=== PATIENT | female | born 1990 | race Caucasian/White ===

== ENCOUNTER 2017-12-10 06:53 | Day surgery (SDC) | payer BC ==
[2017-12-10 08:24] VITALS: BMI 30.2
--- NOTE | 2017-12-10 08:58 | PDOC.LDHP ---
Labor and Delivery H&P HPI: Patient seen in Triage (first arrival at approx 0715) for contractions. She is a 27yo G1 at 39 weeks and 2 days with EDC 12/15. Patient of Dr Sanchez. No LOF, No VB, no HARRIS, good FM. Denies other issues. here for labor check. Current gestational age (weeks): 39 (2 days) Due date: 12/15/17 Dating criteria: last menstrual period Grav: 1 Para: 0 Current complications: none Abnormal US findings: No Current medications: pre-jesenia vitamins Allergies/Adverse Reactions: Allergies Allergy/AdvReac Type Severity Reaction Status Date / Time Cephalosporins Allergy Verified 12/10/17 08:08 Social history: other (cephalosporins) - Physical Exam Vital signs reviewed and normal: yes (highest BP was 130/90 x 1) General: NAD Heart: RRR Lungs: CTAB Abdomen: gravid FHT: category 1 Calvary contractions every: irregular pattern noted - Vaginal Exam cm dilated: 0 (per RN exam (I will check prior to final disposition; cervix stated as very posterior on empty bladder)) - Plan Plan: observation in L&D, other (Patient has been observed for 1-2 hours. DX ids threatned labor at term. I will recheck cervix and ifno evidence of ROM or advanced dilation, ok for outpatient follow up. Pain control prn. Strip seen by me.)
--- NOTE | 2017-12-10 09:17 | PDOC.EVN ---
Event Note - Event Note Event Note: Exam just performed by me at 904: cervix posterior, 1cm/80/0/soft. No evidence VB or ROM strip reviewed with the patient and her partner: cat 1 discussed. She is having contractions on toco but she states she is ok and declines pain meds at this time. I have discussed with her latent phase of labor. Q&A done. I advised her to follow up with Dr Sanchez tomorrow before the weekend for recheck. OK for outpatient follow up.
[2017-12-11] MEDS ORDERED: FLU VACC QS2017-18 36 mo. & older 0.5 ML SYRINGE IM ONE (09:00)
== END 2017-12-10 09:22 | disposition home or self-care (01) ==
LOC: L&D/OP 06:53
PROVIDERS: ATTEND Family Medicine
DX: O47.1 False labor at or after 37 completed weeks of gestation (principal); Z3A.39 39 weeks gestation of pregnancy; Z88.1 Allergy status to other antibiotic agents

== ENCOUNTER 2017-12-11 08:33 | Inpatient (IN) | payer BC ==
[2017-12-11 09:08] VITALS: BMI 30.2
[2017-12-11] MEDS ORDERED: Ondansetron HCl/PF 4 MG/2 ML Vial IVP PRN (12:22)
[2017-12-11] MEDS ORDERED: LR / Pitocin 40 units/1000 ml 1,000 ML IV PRN (12:22)
[2017-12-11] MEDS ORDERED: Lidocaine 1% (PF) 30 ML VIAL SC PRN (12:22)
[2017-12-11] MEDS ORDERED: Acetaminophen/Codeine 30-300mg Tablet PO PRN ×2 (12:22)
[2017-12-11] MEDS ORDERED: Ibuprofen 800 MG TAB PO PRN (12:22)
[2017-12-11] MEDS ORDERED: Lactated Ringer's 1,000 ML IV SCH (12:30)
[2017-12-11] MEDS: Lactated Ringer's 1,000 ML IV SCH ×3 (13:15→18:01)
[2017-12-11 13:33] LABS: Hemoglobin 12.7 g/dL (12.0-16.0); Mean Corpuscular HGB CONC 34.2 g/dL (32.0-36.0); Mean Corpuscular Hemoglobin 30.9 pg (27.0-31.0); Mean Corpuscular Volume 90.6 fl (81.0-99.0); Mean Platelet Volume 9.3 fL (7.4-10.4); Platelet Count 236 thou/uL (130-400); RBC Distribution Width 11.7 % (11.5-14.5); Red Blood Cell (RBC) Count 4.09 mill/uL (4.20-5.40); White Blood Cell (WBC) Count 12.5 thou/uL (4.8-10.8)
[2017-12-11 14:11] LABS: Syphilis Antibody Nonreactive (Nonreactive); Syphilis Antibody Index 0.03 S/CO (<1.00 Non-Reactive)
[2017-12-11 14:37] LABS: HBSAg Index 0.17 S/CO (0-0.99); Hep B Surf Ag Non-Reactive S/CO (NonReactive)
[2017-12-11] MEDS ORDERED: LR 500 ML/Oxytocin 10 units 500 ML ONE (19:47)
[2017-12-11] MEDS ORDERED: Bupivacaine 0.5% 20 ML, Fentanyl 400 MCG in Sodium Chloride 0.9% 72 ML EPIDURAL SCH (20:45)
[2017-12-11 21:53] LABS: Analyzer IN Cardio OR
[2017-12-11 21:54] LABS: Actual Bicarbonate (HCO3v) 20 mEq/L (22-26); Base Excess -5.8 mEq/L (0 (+/- 2.5))
[2017-12-12] MEDS ORDERED: Bisacodyl 10 MG SUPP PR PRN (00:34)
[2017-12-12] MEDS ORDERED: LR / Pitocin 40 units/1000 ml 1,000 ML IV SCH (00:34)
[2017-12-12] MEDS ORDERED: Milk Of Magnesia 30 ML UDCUP PO PRN (00:34)
[2017-12-12] MEDS ORDERED: HYDROcodone/Acetaminophen 5/325 mg Tablet PO PRN (00:34)
[2017-12-12] MEDS ORDERED: Preparation H Ointment 28 GM TUBE PR PRN (00:34)
[2017-12-12] MEDS ORDERED: Benzocaine/Menthol 20-0.5% 60 ML CAN TOP PRN (00:34)
[2017-12-12] MEDS: LR 500 ML/Oxytocin 10 units 500 ML IV SCH (02:13)
[2017-12-12] MEDS: Ibuprofen 800 MG TAB PO SCH ×2 (04:21→13:45)
[2017-12-12] MEDS ORDERED: Lanolin Ointment 7 GM TUBE TOP PRN (04:21)
[2017-12-12] MEDS: Docusate Calcium (SURFAK) 240 MG CAP PO SCH ×2 (09:34→21:32)
[2017-12-12] MEDS: Ferrous Sulfate 325 MG TAB PO SCH ×2 (09:35→15:17)
[2017-12-13] MEDS: Ibuprofen 800 MG TAB PO SCH ×2 (00:58→09:11)
[2017-12-13] MEDS: LR 500 ML/Oxytocin 10 units 500 ML IV SCH (00:59)
[2017-12-13 08:45] VITALS: TEMP 98.3
[2017-12-13] MEDS: Docusate Calcium (SURFAK) 240 MG CAP PO SCH (09:10)
[2017-12-13] MEDS: Ferrous Sulfate 325 MG TAB PO SCH (09:11)
[2017-12-13 09:16] VITALS: BP 130/69
== END 2017-12-13 12:46 | disposition home or self-care (01) | DRG 775 ==
LOC: L&D/OP 08:33 → L&D 12:39 → 3SW 12-12 00:20
PROVIDERS: ADMIT Family Medicine; ATTEND Family Medicine
PROC: 10D07Z6 Extraction of Products of Conception, Vacuum, Via Natural or Artificial Opening (ICD-10-PCS; principal; 2017-12-11)
PROC: 0KQM0ZZ Repair Perineum Muscle, Open Approach (ICD-10-PCS; 2017-12-11)
DX: O69.1XX0 Labor and delivery complicated by cord around neck, with compression, not applicable or unspecified (principal); E28.2 Polycystic ovarian syndrome; O70.1 Second degree perineal laceration during delivery; Z37.0 Single live birth; O76 Abnormality in fetal heart rate and rhythm complicating labor and delivery; O99.284 Endocrine, nutritional and metabolic diseases complicating childbirth; Z3A.39 39 weeks gestation of pregnancy
CPT/HCPCS: 82805; 85027; 86780; 87340; 99285; J0595; J2001; J2405; J3010; J3490; J7050; J7120

== ENCOUNTER 2019-09-23 13:00 | Day surgery (SDC) | payer BC ==
[2019-09-23 13:44] VITALS: BP 122/87; TEMP 98.6
[2019-09-23] MEDS ORDERED: hydrALAZINE 20 MG/ML VIAL SLOW IVP PRN (15:57)
--- NOTE | 2019-09-23 16:40 | HP ---
PRIMARY OB: Sean Sanchez MD CHIEF COMPLAINT: Abdominal pain. HISTORY OF PRESENT ILLNESS: The patient is a 29-year-old, G2, P1 female with an intrauterine at 37 weeks and 3 days, presenting with a 2-day history of increasingly more frequent and severe abdominal pains/uterine contractions. The patient reports this lasts several hours. They have been 3 to 4 minutes apart and increasing in intensity. Denies any vaginal bleeding or leakage of fluid. Denies any fever, fall, headache, chest pain, or shortness of breath. The patient had some nausea with the contractions. Denies any significant vomiting. Denies diarrhea or constipation, hip problems, knee problems, or muscle weakness. Denies urinary urgency or frequency. PAST MEDICAL HISTORY: History of migraines and PCOS. PAST SURGICAL HISTORY: Negative. ALLERGIES: KEFLEX. MEDICATIONS: vitamins. SOCIAL HISTORY: Denies drug, alcohol, or tobacco use. OB LABORATORY DATA: 1-hour Glucola 68. Hepatitis B surface antigen first trimester is nonreactive. HIV is nonreactive. She is rubella immune. GBS is negative. RPR is nonreactive. Blood type is A positive with a negative antibody screen. REVIEW OF SYSTEMS: Per HPI. PHYSICAL EXAMINATION: VITAL SIGNS: Blood pressure is 122/87, heart rate of 78, respiratory rate of 18. GENERAL: She appears to be in no acute distress. She is alert, oriented, cooperative, and pleasant to interact with. HEAD: Normocephalic and atraumatic. LUNGS: Clear to auscultation bilaterally. HEART: Has regular rate and rhythm. ABDOMEN: Gravid, soft, and nontender. EXTREMITIES: Nontender and nonedematous. PELVIC: Cervical exam per nursing staff is 1, 50, and -2 station. heart tracing shows fetus with a baseline in the 130s with moderate long-term variability, positive 15 x 15 accelerations. No decelerations. Contraction pattern is difficult to assess. There is a lot of irritability, but hard to determine the frequency the patient is describing. A repeat cervical exam after 2 hours is unchanged. ASSESSMENT AND PLAN: The patient is a 29-year-old female with an intrauterine at 37 weeks and 3 days, who is currently in latent labor. Fetus has a category 1 tracing. She is GBS negative. We have given her term labor precautions and may be returning later tonight. The patient has otherwise been counseled to follow up with her primary OB. Job ID: [id number]
[2019-09-24] MEDS ORDERED: FLU VACC QS2019-20(6MOS UP)/PF 60 MCG/0.5 ML SYRINGE IM ONE (14:00)
== END 2019-09-23 16:05 | disposition home or self-care (01) ==
LOC: L&D/OP 13:00
PROVIDERS: ATTEND Family Medicine
DX: O47.1 False labor at or after 37 completed weeks of gestation (principal); Z3A.37 37 weeks gestation of pregnancy
CPT/HCPCS: 99283

== ENCOUNTER 2019-10-02 07:13 | Inpatient (IN) | payer BC ==
[2019-10-02 07:47] VITALS: BMI 30.2
[2019-10-02] MEDS ORDERED: HYDROcodone/Acetaminophen 5/325 mg Tablet PO PRN ×3 (09:00→15:08)
[2019-10-02] MEDS ORDERED: NS / Oxytocin 40 units/1000ml 1,000 ML IV PRN (09:00)
[2019-10-02] MEDS ORDERED: Lactated Ringer's 1,000 ML IV SCH (09:00)
[2019-10-02] MEDS ORDERED: Ondansetron PF 4 MG/2 ML Vial IVP PRN (09:00)
[2019-10-02] MEDS ORDERED: Ibuprofen 800 MG TAB PO PRN (09:00)
[2019-10-02] MEDS ORDERED: Butorphanol Tartrate 1 MG/ML VIAL SLOW IVP PRN (09:00)
[2019-10-02] MEDS ORDERED: Promethazine HCl 25 MG/ML VIAL IM PRN (09:00)
[2019-10-02] MEDS ORDERED: hydrALAZINE 20 MG/ML VIAL SLOW IVP PRN ×2 (09:00→15:08)
[2019-10-02] MEDS ORDERED: Lidocaine 1% (PF) 30 ML VIAL SC PRN (09:00)
--- NOTE | 2019-10-02 09:04 | PDOC.EVN ---
Event Note - Event Note Event Note: OB Worm Picker ADMIT At bedside: See dictation just competed just prior to this. Patient with painful CTX and noted variable while I was in room. Due to CTX discomfort and variable, and EGA, we will admit to Dr Sanchez rather than labor OBS. I have reviewed plan of care with RN team and patient.
--- NOTE | 2019-10-02 09:17 | HP ---
TIME OF EVALUATION: 0900. LOCATION: [facility] bed 1. This is a patient of Dr. Sanchez. CHIEF COMPLAINT: Contractions at 38 weeks. HISTORY OF PRESENT ILLNESS: In brief, this is a 29-year-old, G2, P1 with a history of a prior vaginal , who is at 38 weeks and 5 days here with irregular contractions since this morning. She denies leakage of fluid or vaginal bleeding and she has good movement. She denies issues with this . REVIEW OF SYSTEMS: Complete review of systems was completed and is otherwise negative unless specified in the HPI. PAST MEDICAL HISTORY: Negative. PAST SURGICAL HISTORY: Noncontributory. ALLERGIES: TO CEPHALOSPORINS. OB HISTORY: She has had a vaginal delivery. PHYSICAL EXAMINATION: VITAL SIGNS: Her blood pressure is 120/80s to a highest diastolic of the low 90s. She is afebrile and pulse is 80s to 90s. GENERAL: Clinically, she is in no acute distress. Cervix per RN exam was 4 cm dilated, 75% effaced, -3 station with no gross evidence of leakage or vaginal bleeding. Cervix is still slightly posterior. monitor; heart tones were reviewed and they are in the 120s to 130s and they are reactive with moderate variability and no pathological decelerations. Tocodynamometer has irregular contractions. ASSESSMENT: G2, P1, in early term at 38 weeks and 5 days with the latent labor, GBS negative. PLAN: 1. Labor observation for about 2 hours. 2. The patient may ambulate as she has requested. 3. We will admit to Dr. Sanchez if there is evidence of labor or need for admission. Job ID: [id number]
[2019-10-02 10:07] LABS: Hemoglobin 12.9 g/dL (12.0-16.0); Mean Corpuscular HGB CONC 34.1 g/dL (32.0-36.0); Mean Corpuscular Hemoglobin 30.7 pg (27.0-31.0); Mean Platelet Volume 9.8 fL (7.4-10.4); Platelet Count 188 thou/uL (130-400); RBC Distribution Width 11.7 % (11.5-14.5); Red Blood Cell (RBC) Count 4.19 mill/uL (4.20-5.40); White Blood Cell (WBC) Count 9.7 thou/uL (4.8-10.8)
[2019-10-02 10:47] LABS: HBSAg Index 0.18 S/CO (0-0.99); HIV (1/2) Antibody/Antigen Non-Reactive (NonReactive); HIV 1/2 INDEX 0.06 S/CO (<1.00); Hep B Surf Ag Non-Reactive S/CO (NonReactive)
[2019-10-02 10:56] LABS: Syphilis Antibody Nonreactive (Nonreactive); Syphilis Antibody Index 0.04 S/CO (<1.00 Non-Reactive)
--- NOTE | 2019-10-02 10:58 | PDOC.EVN ---
Event Note - Event Note Event Note: At patient bedside. FHT category I. Was having some variable decels earlier but those are resolved now. SVE 5/90/-1. Midposition. AROM with clear fluid and mild bloody show. Mom and baby tolerated well. Continue monitors. BP has been borderline high 130's/90's since admission. After my exam was 144/101 - continue to closely monitor for now. I suspect this is due to pain and anxiety rather than PIH or preeclampsia - will continue to monitor closely for now.
[2019-10-02] MEDS ORDERED: NS / Oxytocin 40 units/1000ml 1,000 ML ONE (12:06)
[2019-10-02] MEDS ORDERED: Lidocaine 1% (PF) 30 ML VIAL ONE (12:06)
--- NOTE | 2019-10-02 12:58 | PDOC.OPDEL ---
OB Operative/Delivery Note Delivery Dr/Surgeon: Daniel Pre-Delivery Diagnosis: active labor Procedure/Post Delivery Dx: spontaneous vaginal delivery (Head OA, no nuchal cord, there was a short cord, shoulders and body easily followed, mouth and nares bulb suctioned, placed on mother's abdomen) Weeks gestation: 38 Anesthesia: local - Findings A Sex: male - 1 min: 8 - 5 min: 9 - Additional Findings/Plan Placenta delivered: spontaneous Repaired Obstetrical Laceration: 1st degree (Repaired with 3.0 vicryl in standard fashion under local anesthesia) Estimated blood loss: 50 Compilations/Other Findings: Vigorous male. No complications.
[2019-10-02] MEDS ORDERED: Bisacodyl 10 MG SUPP PR PRN (15:08)
[2019-10-02] MEDS ORDERED: Milk Of Magnesia 30 ML UDCUP PO PRN (15:08)
[2019-10-02] MEDS ORDERED: Benzocaine-Menthol 82.5 ML CAN TOP PRN (15:08)
[2019-10-02] MEDS ORDERED: NS / Oxytocin 40 units/1000ml 1,000 ML IV SCH (15:08)
[2019-10-02] MEDS ORDERED: Lanolin Ointment 7 GM TUBE TOP PRN (15:08)
[2019-10-02] MEDS ORDERED: Preparation H Ointment 28 GM TUBE PR PRN (15:08)
[2019-10-02] MEDS: Ferrous Sulfate 325 MG TAB PO SCH (17:26)
[2019-10-02] MEDS: Docusate Calcium (SURFAK) 240 MG CAP PO SCH (21:10)
[2019-10-03] MEDS: Ibuprofen 800 MG TAB PO SCH ×2 (01:52→14:19)
[2019-10-03] MEDS ORDERED: FLU VACC QS2019-20(6MOS UP)/PF 60 MCG/0.5 ML SYRINGE IM ONE (08:00)
[2019-10-03] MEDS: Docusate Calcium (SURFAK) 240 MG CAP PO SCH (09:29)
[2019-10-03] MEDS: Ferrous Sulfate 325 MG TAB PO SCH (09:30)
[2019-10-03 11:49] VITALS: BP 129/80; TEMP 98
--- NOTE | 2019-10-03 15:02 | PDOC.PP ---
Post Progress Note Post Day #: 1 Subjective: , doing well on PPD #1, lochia normal, lessening. Minimal pain. going well. PO intake tolerated: yes Flatus: yes Ambulation: yes Vital Signs (12 hours) Temp Pulse Resp BP Pulse Ox 10/03/19 11:49 98.0 F 54 L 20 129/80 10/03/19 08:29 97.5 F L 61 20 139/89 98 10/03/19 04:50 97.7 F 67 18 123/85 Weight Weight 193 lb - Physical Examination General: NAD Cardiovascular: no m/r/g, RRR Respiratory: clear to auscultation bilaterally Abdominal: + bowel sounds, no distention Extremities: negative homans (B) Neurological: no gross focal deficits Psychiatric: A&Ox3 Result Diagrams: 10/02/19 09:56 Additional Labs: Post Labs Blood Type A POSITIVE 10/02/19 09:56 Hep Bs Antigen Non-Reactive S/CO (NonReactive) 10/02/19 09:56 (1) Vaginal delivery Code(s): O80 - ENCOUNTER FOR FULL-TERM UNCOMPLICATED DELIVERY Status: Acute - Assessment/Plan Routine PP care D/C home F/U in 6 weeks.
== END 2019-10-03 16:40 | disposition home or self-care (01) | DRG 807 ==
LOC: L&D/OP 07:13 → L&D 09:08 → 3SW 15:44
PROVIDERS: ADMIT Family Medicine; ATTEND Family Medicine
PROC: 10E0XZZ Delivery of Products of Conception, External Approach (ICD-10-PCS; principal; 2019-10-02)
PROC: 10907ZC Drainage of Amniotic Fluid, Therapeutic from Products of Conception, Via Natural or Artificial Opening (ICD-10-PCS; 2019-10-02)
PROC: 0HQ9XZZ Repair Perineum Skin, External Approach (ICD-10-PCS; 2019-10-02)
DX: O70.0 First degree perineal laceration during delivery (principal); Z37.0 Single live birth; Z3A.38 38 weeks gestation of pregnancy
CPT/HCPCS: 85027; 86780; 86850; 86900; 86901; 87340; 87389; 99285; J2001